=== PATIENT | male | born 1985 | race African-American/Black ===

== ENCOUNTER 2019-11-20 08:25 | Emergency (ER) | payer OTHER ==
[2019-11-20] MEDS ORDERED: LIDOCAINE HCL-MPF 1% 2ML VIAL ONE (08:52)
[2019-11-20] MEDS ORDERED: CEFTRIAXONE SODIUM 500 MG VIAL ONE (08:52)
[2019-11-20] MEDS ORDERED: AZITHROMYCIN 250 MG TABLET PO ONE (08:53)
== END 2019-11-20 09:04 | disposition home or self-care (01) ==
LOC: EDH 08:25
DX: N34.2 Other urethritis (principal); Z72.0 Tobacco use
CPT/HCPCS: 87486; 87797; 96372; 99283; J0696; J3490